=== PATIENT | female | born 1980 ===

== ENCOUNTER → 2024-06-29 10:19 | Outpatient (BNVA) | payer OTHER, SELFPAY | PROVIDERS: PCP Nurse Practitioner Family; Visit Provider Surgery ==

== ENCOUNTER 2024-07-13 08:01 | Outpatient (AMB) | payer OTHER, SELFPAY ==
--- NOTE | 2024-07-13 13:10 | A.OFFVIS_ITS ---
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 Allergies latex Allergy (Mild, Verified 07/13/24 13:10) Rash cephalexin [From Keflex] Allergy (Unknown, Verified 07/13/24 13:10) Unknown hydromorphone [From Dilaudid] Allergy (Unknown, Verified 07/13/24 13:10) Unknown morphine Allergy (Unknown, Verified 07/13/24 13:10) Unresponsive metamucil orange smooth texture Allergy (Mild, Uncoded 07/13/24 13:10) Anaphylaxis food allergy Allergy (Unknown, Uncoded 07/13/24 13:10) Unknown Medication List - Last Reconciled 07/13/24 by Donnie Pelaez MD atomoxetine 40 mg PO DAILY bupropion HCl SR 200 mg PO QAM diclofenac sodium 1% 2 grams topical QID docusate sodium (Colace) 100 mg PO DAILY docusate sodium (Colace Clear) 50 mg PO BID epinephrine 0.3 mg IM Q15M PRN fluoxetine 20 mg PO DAILY fluticasone propionate 50 mcg/actuation (Flonase Allergy Relief) 1 spray intranasal DAILY hydrochlorothiazide 25 mg PO DAILY loratadine (Allergy Relief (loratadine)) 10 mg PO DAILY losartan 25 mg PO DAILY methylphenidate HCl ER (Concerta) 36 mg PO DAILY omeprazole 20 mg PO DAILY HPI HPI 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: Details: Start time: 1pm, End time: 1.52pm ?I spent 47 minutes speaking with the patient on the phone plus an additional 5 minutes reviewing and updating records for a total of 52 minutes HPI Comments Details: Overall weight loss efforts: Exercise, self diets Wakes up: 6am, Sleeps: 10.30pm Breakfast: 6am (eggs, cheesy bread) Lunch: 12pm (sandwiches) Dinner: 5.30pm (noodles, rice, meat, vegetables) Snacks: 10am (candy), 3pm (sandwich), 7pm (popcorn) Exercise: None Fluids: Coffee: 2-3/day (cream and sugar), tea: 1 cup/day (sugar), soda: none, juice: none, ETOH: none PFSH Medical History (Updated 07/13/24 @ 13:18 by Donnie Pelaez MD) SVT (supraventricular tachycardia) Seizure Anxiety Depression ADHD GERD (gastroesophageal reflux disease) Obstructive sleep apnea treated with bilevel positive airway pressure (BiPAP) Hypertension Morbid obesity Hx of nephrolithotomy with removal of calculi Surgical History (Updated 07/01/24 @ 09:36 by Olive Bell CMA) Hx of prior ablation treatment Hx of colonoscopy Hx of bladder endoscopy Hx of carpal tunnel repair History of 2 sections History of nasal surgery Hx of foot surgery Hx of cholecystectomy Family History (Updated 07/01/24 @ 09:38 by Olive Bell CMA) Mother No problems noted. Father No problems noted. Social History (Updated 06/29/24 @ 10:35 by Olive Bell CMA) Alcohol intake: current Alcohol intake frequency: holidays/special occasions only Patient Tobacco Use Status: Never used Tobacco Telehealth Telehealth Telehealth Platform: Telephone Location of provider rendering services: practice address Location of patient: address on file Patient Identification confirmed using: Name, : Yes Telehealth method: voice only Patient verbally consented to treatment: Yes Patient verbally consented to billing insurance company: Yes Patient informed of any privacy concerns related to visit: Yes Minutes spent on Phone/Video with Pt.: 52 Assessment & Plan Assessment & Plan (1) Morbid obesity: Code(s): E66.01 - Morbid (severe) obesity due to excess calories Category: Medical Plan: 1.? Plan for lap sleeve gastrectomy. If diaphragmatic or ventral hernias are present at time of surgery, these will be repaired laparoscopically as well. Risks and complications include possible conversion to an open procedure, anasto motic leak, bleeding requiring transfusion, small bowel obstruction, , DVT and pulmonary embolism, cardiac, or pulmonary complications, as director long term care complications such as anastomotic ulcer, insufficient weight loss and vitamin deficiencies. I emphasized the importance of close follow-up, adherence to instructions and good communication. 2. Nutritional counseling. Start with 2 CELEBRATE REBUILD protein (buy at [facility]) shakes (TWO scoops EACH in 8oz low fat unsweetened almond milk each) at 7am-9am and 10am-12pm, 2 protein bars (CELEBRATE protein bars, buy at [facility]) at 1pm-3pm and 4pm-6pm, dinner at 7pm (12 forks of protein and 12 forks of salad/vegetables) AND one more protein bar after dinner at 9pm-11pm. So you do 2 protein shakes, 3 protein bars and one meal per day. Meal to include lean meat (beef, fish, pork, turkey, chicken), or bruneian yogurt, or egg whites, or beans with a salad with olive oil and fruits (berries, pears, apples, kiwi). Avoid salt, breads, potatoes, rice, pasta, desserts. 3. Each shake would be drunk slowly, like coffee in a period of 2 hours. 4. Cut each bar in 4 pieces and eat each piece in 30min ?to make each bar last 2 hours. 5. I emphasized the importance of measuring accurately the food portion and measure it when serving the food in plate 6. The meal portions include 12 full-size forks of meat and 12 full-size forks of salad. You always eat the meat portion but you can replace up to 6 forks for salad/vegetables with rice, potatoes or pasta, or a fruit ?if you like. The less you do it the better weight loss will be. 7. One full-size fork is what it can be scooped on the fork without falling aside and not what can be bit with the fork. Use regular forks like those you find in a typical restaurant. 8.? Please send me weight measurements as soon as possible and then once a week. Always include your diet and exercise plan. 9. Start walking outside daily, tracking calories with a goal of 300 calories per day, daily. Goal is to burn 2000 calories per week on exercise, which means either 300 calories daily, or 400 calories 5 days per week, or 500 calories 4 days per week, or 650 calories 3 days per week. 10. The best choice would be to purchase a stationary bike, elliptical or treadmill at home that can track calories. Let me know if you do so I can give you an exercise plan. 11.?It is important of avoiding and for at least 18 months postoperatively and has been discussed at the infosession. 12. Goal is to lose at least 1.5-2lbs per week 13. Goal to lose 10% of your weight before surgery, which is about 33lbs. Ultimate weight goal: 297lbs before surgery 14. Please follow the diet plan exactly without any change. If you don't like something about the plan or you feel hungry you need to communicate with me so I can help you revise the plan. You should not change the plan yourself. 15. To be scheduled for EGD due to history of GERD. The possibility of biopsies was discussed. Patient needs to avoid use of NSAIDs and aspirin for 1 week prior to EGD. Risks of perforation and bleeding was discussed with the patient. This will be an outpatient procedure with IV sedation. Orders: Orders H Pylori Breath Test Today E66.01 - Morbid (severe) obesity due to excess calories, F90.9 - Attention-deficit hyperactivity disorder, unspecified type, I10 - Essential (primary) hypertension, K21.9 - Gastro-esophageal reflux disease without esophagitis Complete Blood Count Auto Diff Today E66.01 - Morbid (severe) obesity due to excess calories, F90.9 - Attention-deficit hyperactivity disorder, unspecified type, I10 - Essential (primary) hypertension, K21.9 - Gastro-esophageal reflux disease without esophagitis C Reactive Protein Today E66.01 - Morbid (severe) obesity due to excess calories, F90.9 - Attention-deficit hyperactivity disorder, unspecified type, I10 - Essential (primary) hypertension, K21.9 - Gastro-esophageal reflux disease without esophagitis Vitamin A Today E66.01 - Morbid (severe) obesity due to excess calories, F90.9 - Attention-deficit hyperactivity disorder, unspecified type, I10 - Essential (primary) hypertension, K21.9 - Gastro-esophageal reflux disease without esophagitis Ferritin Today E66.01 - Morbid (severe) obesity due to excess calories, F90.9 - Attention-deficit hyperactivity disorder, unspecified type, I10 - Essential (primary) hypertension, K21.9 - Gastro-esophageal reflux disease without esophagitis US abdomen comp w elastography Today E66.01 - Morbid (severe) obesity due to excess calories, F90.9 - Attention-deficit hyperactivity disorder, unspecified type, I10 - Essential (primary) hypertension, K21.9 - Gastro-esophageal reflux disease without esophagitis XR chest 2V Today E66.01 - Morbid (severe) obesity due to excess calories, F90.9 - Attention-deficit hyperactivity disorder, unspecified type, I10 - Essential (primary) hypertension, K21.9 - Gastro-esophageal reflux disease without esophagitis ECG 12 lead EKG Today E66.01 - Morbid (severe) obesity due to excess calories, F90.9 - Attention-deficit hyperactivity disorder, unspecified type, I10 - Essential (primary) hypertension, K21.9 - Gastro-esophageal reflux disease without esophagitis Insulin Today E66.01 - Morbid (severe) obesity due to excess calories, F90.9 - Attention-deficit hyperactivity disorder, unspecified type, I10 - Essential (primary) hypertension, K21.9 - Gastro-esophageal reflux disease without esoph agitis Hemoglobin A1c Today E66.01 - Morbid (severe) obesity due to excess calories, F90.9 - Attention-deficit hyperactivity disorder, unspecified type, I10 - Essential (primary) hypertension, K21.9 - Gastro-esophageal reflux disease without esophagitis Lipid Panel Today E66.01 - Morbid (severe) obesity due to excess calories, F90.9 - Attention-deficit hyperactivity disorder, unspecified type, I10 - Essential (primary) hypertension, K21.9 - Gastro-esophageal reflux disease without esophagitis IRON PROFILE Today E66.01 - Morbid (severe) obesity due to excess calories, F90.9 - Attention-deficit hyperactivity disorder, unspecified type, I10 - Essential (primary) hypertension, K21.9 - Gastro-esophageal reflux disease without esophagitis Comprehensive Met. Panel Today E66.01 - Morbid (severe) obesity due to excess calories, F90.9 - Attention-deficit hyperactivity disorder, unspecified type, I10 - Essential (primary) hypertension, K21.9 - Gastro-esophageal reflux disease without esophagitis Vitamin B12 and Folate Today E66.01 - Morbid (severe) obesity due to excess calories, F90.9 - Attention-deficit hyperactivity disorder, unspecified type, I10 - Essential (primary) hypertension, K21.9 - Gastro-esophageal reflux disease without esophagitis Zinc Today E66.01 - Morbid (severe) obesity due to excess calories, F90.9 - Attention-deficit hyperactivity disorder, unspecified type, I10 - Essential (primary) hypertension, K21.9 - Gastro-esophageal reflux disease without esophagitis Vitamin B1 Today E66.01 - Morbid (severe) obesity due to excess calories, F90.9 - Attention-deficit hyperactivity disorder, unspecified type, I10 - Essential (primary) hypertension, K21.9 - Gastro-esophageal reflux disease without esophagitis TSH reflex Free T4 Today E66.01 - Morbid (severe) obesity due to excess calories, F90.9 - Attention-deficit hyperactivity disorder, unspecified type, I10 - Essential (primary) hypertension, K21.9 - Gastro-esophageal reflux disease without esophagitis Vitamin D 25-OH Total Today E66.01 - Morbid (severe) obesity due to excess calories, F90.9 - Attention-deficit hyperactivity disorder, unspecified type, I10 - Essential (primary) hypertension, K21.9 - Gastro-esophageal reflux disease without esophagitis FL upper GI w air Today E66.01 - Morbid (severe) obesity due to excess calories, F90.9 - Attention-deficit hyperactivity disorder, unspecified type, I10 - Essential (primary) hypertension, K21.9 - Gastro-esophageal reflux disease without esophagitis Referrals Behavioral Health Referral E66.01 - Morbid (severe) obesity due to excess calories, F90.9 - Attention-deficit hyperactivity disorder, unspecified type, I10 - Essential (primary) hypertension, K21.9 - Gastro-esophageal reflux disease without esophagitis Nutrition/Dietitian Referral E66.01 - Morbid (severe) obesity due to excess calories, F90.9 - Attention-deficit hyperactivity disorder, unspecified type, I10 - Essential (primary) hypertension, K21.9 - Gastro-esophageal reflux disease without esophagitis
[2024-07-13 13:33] VITALS: BMI 49.4
== END 2024-07-13 13:53 | disposition home or self-care (01) ==
LOC: HO.HBS 08:01
PROVIDERS: PCP Nurse Practitioner Family; Visit Provider Surgery
DX: E66.01 Morbid (severe) obesity due to excess calories (principal)
CPT/HCPCS: 99204

== ENCOUNTER → 2024-07-13 08:01 | Outpatient (BNVA) | payer OTHER, SELFPAY | PROVIDERS: PCP Nurse Practitioner Family; Visit Provider Surgery ==